=== PATIENT | female | born 1950 | race Hispanic/Latino ===

== ENCOUNTER 2021-09-28 16:30 | Emergency (ER) | payer SELFPAY ==
[2021-09-28 16:44] VITALS: BP 162/71; PULSE 92; RESP 20; TEMP 37.1; O2SAT 100
--- NOTE | 2021-09-28 17:07 | ED.GENADULT ---
HPI - General Adult General Chief complaint: Dental/Oral Stated complaint: mouth pain Source: patient Mode of arrival: ambulatory Limitations: no limitations History of Present Illness HPI narrative: Patient is a 71-year-old female presents to the [facility] via POV accompanied by granddaughter for evaluation of upper and lower gum pain that has been present for 6-7 months. She states her pain has worsened over the past 2 months prompting today's visit. Pain is intermittent. No relief with Advil. Nothing improves pain. And everything worsens pain. She has not seen a dentist in years although has an appointment for October 25, 2021. Patient has a full set of dentures. Related Data Home Medications Medication Instructions Recorded Confirmed metformin mg 09/28/21 Allergies Allergy/AdvReac Type Severity Reaction Status Date / Time No Known Allergies Allergy Unverified 04/24/17 17:05 Review of Systems Review of Systems: Denies poor oral health, abscess, and drug use. Pertinent negatives fever, chills, sweats, poor p.o. intake, change in appetite, recent weight loss, malaise, headache, dizziness, skin color changes, lymphadenopathy, ear pain/drainage, nasal drainage/congestion, hearing loss, tinnitus, vertigo, facial swelling, gum redness, swollen/tender gums, inability to swallow, drooling, sore throat, nausea, vomiting, sob, chest pain, and heart palpitations/murmurs. [facility] Past Medical History Medical History (Updated 09/28/21 @ 17:28 by EDGAR Serra, ) Diabetes Family History Family History Other Diabetes mellitus Social History Social History Smoking status: Never smoker Alcohol intake: never Comments I have reviewed and agree with the patient's past medical, surgical, social, and family hx as documented by the RN. There is no relevant family history pertinent to the presenting complaint. Exam Narrative: GENERAL: Well-appearing, well-nourished, and in no acute distress. HEAD: Normocephalic, atraumatic. No sinus tenderness or facial swelling. NECK: Supple. No lymphadenopathy or nuchal rigidity. CHEST: Lung sounds are clear to auscultation in bilateral lung ahmadi. No respiratory distress. No evidence of cough upon examination. HEART: Regular rate and rhythm. No murmurs, gallops, or rubs heard. Normal peripheral pulses. Eyes: PERRLA and EOMI. Bilateral conjunctiva with erythema. Normal sclera, eyelids, and eyelashes. Periorbital areas without swelling, erythema, and warmth. No drainage appreciated. ENT: Ears: TMs pearly lind. No bulging, erythema, or fluid appreciated. External auditory canals are Nose: Nares clear, no rhinorrhea or epistaxis. No swelling or erythema. Throat/Mouth: No evidence of swelling, erythema, exudate, peritonsillar mass, lesions, ulcers or drooling. Uvula is midline and without erythema and swelling. Mucous membranes moist. Voice and breath odor normal. No evidence of dental abscess, cellulitis, dental carries, avulsion, or fracture teeth. Moderate pain elicited to upper and lower gums with palpation. EXTREMITIES: Normal range of motion. No edema. SKIN: Warm, dry, no rash. No skin color changes. Excellent turgor. NEURO: No focal deficits. Alert and oriented x3. Course Vital Signs Vital signs: Vital Signs Temperature 98.7 F 09/28/21 16:44 Pulse Rate 92 09/28/21 16:44 Respiratory Rate 20 09/28/21 16:44 Blood Pressure 162/71 H 09/28/21 16:44 Pulse Oximetry 100 09/28/21 16:44 Temperature 98.7 F 09/28/21 16:44 Pulse Rate 92 09/28/21 16:44 Respiratory Rate 20 09/28/21 16:44 Blood Pressure 162/71 H 09/28/21 16:44 Pulse Oximetry 100 09/28/21 16:44 Due to an elevated blood pressure, I had a detailed discussion with the patient and/or guardian regarding the need for follow-up with their primary care provider within the
== END 2021-09-28 17:41 | disposition home or self-care (01) ==
PROVIDERS: Emergency Provider Nurse Practitioner Family
DX: K08.89 Other specified disorders of teeth and supporting structures (principal); E11.9 Type 2 diabetes mellitus without complications
CPT/HCPCS: 99213; G0463